=== PATIENT | female | born 1990 | race Caucasian/White ===

== ENCOUNTER → 2018-05-24 | Outpatient (CLI) | payer BC ==
--- NOTE | 2018-05-24 15:55 | Diagnostic Imaging Report ---
INDICATION: survey. TECHNIQUE: Multiple real-time grayscale images were obtained over the gravid uterus. COMPARISON: There are no prior studies available for comparison. FINDINGS: There is a single live fetus in cephalic presentation. heart motion was noted and a rate of 144 BPM was recorded. There were no abnormalities identified. The growth parameters are fairly uniform. The placenta is posterior and there is no previa. The amniotic fluid volume is within normal limits. The cervix was measured and is estimated to be 5.1 cm in length. There does seem to be some heterogeneous echogenicity within the cervix. I am not convinced that this is related to fluid. Even so, this finding is somewhat unusual. It may prove worthwhile to have a short-term (2-4 week) followup exam for further evaluation of the cervix. Biometrical measurements are as follows: Biparietal 4.80 cm, age 20 weeks 4 days. Head circumference 15.58 cm, age 20 weeks 3 days. Abdominal circumference 15.58 cm, age 20 weeks 6 days. Femur length 3.05 cm, age 19 weeks 4 days. Sonographic estimate age: 20 weeks 3 days. Sonographic estimated date of delivery: 10/08/2018. Estimated Weight: 337 gm (+/- 49 gm). LMP percentile: 25%. heart rate: 144 beats per minute. number: 1 of 1. IMPRESSION: 1. There is a single live fetus at approximately 20 weeks 3 days gestation +/-1.5 weeks. The EDC is October 08, 2018. 2. There were no abnormalities identified. 3. The growth parameters are fairly uniform. 4. The appearance of the cervix is of uncertain etiology. Recommendations, as above. Dictated by: Dictated on workstation # [id number]
== END ==
LOC: RAD 14:03
PROVIDERS: ATTEND Obstetrics & Gynecology
DX: Z36.89 Encounter for other specified antenatal screening (principal); Z3A.20 20 weeks gestation of pregnancy
CPT/HCPCS: 76805

== ENCOUNTER → 2018-06-12 | Outpatient (CLI) | payer BC ==
--- NOTE | 2018-06-12 19:14 | Diagnostic Imaging Report ---
INDICATION: Evaluate cervical length. FINDINGS: There is a single live fetus in a cephalic presentation. heart rate was recorded at 150 beats per minute. Placenta is fundal. Cervical length is approximately 2.8 cm. Previously noted heterogeneity is no longer appreciated. IMPRESSION: Unremarkable limited obstetrical ultrasound. Dictated by: Dictated on workstation # [id number]
== END ==
LOC: RAD 11:04
PROVIDERS: ATTEND Obstetrics & Gynecology
DX: Z36.86 Encounter for antenatal screening for cervical length (principal); Z3A.23 23 weeks gestation of pregnancy
CPT/HCPCS: 76815

== ENCOUNTER 2018-09-20 02:03 | Inpatient (IN) | payer BC ==
[2018-09-20] VITALS (78 sets, daily range): BP systolic 101–145; BP diastolic 51–88
[~2018-09-20] VITALS: Ht 160 cm; Wt 66.2 kg
--- NOTE | 2018-09-20 02:10 | NUR ---
KAY WELSH presented to unit via wheelchair from ED, accompanied by , with c/o CONTRACTIONS. KAY WELSH gowned, voided, and to bed. EFHM and TOCO applied, VS taken. KAY WELSH oriented to bed controls, call light, TV, heat, and A/C controls.
[2018-09-20] MEDS ORDERED: PREN-53 PO (02:19)
[2018-09-20] MEDS ORDERED: D5 LR IV SOLUTION 1,000 ML IV ONE (02:19)
[2018-09-20] MEDS ORDERED: OXYTOCIN/NORMAL SALINE 500 ML IV ONE (02:44)
[2018-09-20] MEDS: D5 LR IV SOLUTION 1,000 ML IV SCH ×2 (02:45→09:59)
[2018-09-20] MEDS ORDERED: OXYTOCIN/NORMAL SALINE 500 ML IV SCH ×2 (02:54→17:24)
[2018-09-20 03:00] LABS: BASOPHILS % (AUTO) 0 % (0-10); EOSINOPHILS # (AUTO) 0.4 10^3/uL (0.0-0.3); EOSINOPHILS % (AUTO) 3 % (0-10); HEMATOCRIT 32 % (35-52); HEMOGLOBIN 10.9 G/DL (11.5-16.0); LYMPHOCYTES # (AUTO) 1.8 X 10^3 (1.0-4.0); LYMPHOCYTES % (AUTO) 14 % (12-44); MEAN CORPUSCULAR HEMOGLOBIN 31 PG (25-34); MEAN CORPUSCULAR HGB CONC 34 G/DL (32-36); MEAN CORPUSCULAR VOLUME 92 FL (80-99); MEAN PLATELET VOLUME 9.4 FL (7.4-10.4); MONOCYTES # (AUTO) 1.4 X 10^3 (0.0-1.0); MONOCYTES % (AUTO) 10 % (0-12); NEUTROPHILS # (AUTO) 9.5 X 10^3 (1.8-7.8); NEUTROPHILS % (AUTO) 72 % (42-75); PLATELET COUNT 245 10^3/uL (130-400); RED CELL DISTRIBUTION WIDTH 12.4 % (10.0-14.5); WHITE BLOOD COUNT 13.1 10^3/uL (4.3-11.0)
[2018-09-20] MEDS ORDERED: ONDANSETRON 4 MG/2 ML (SDV) Z0FRAN ONE (05:44)
[2018-09-20] MEDS ORDERED: ONDANSETRON 4 MG/2 ML (SDV) Z0FRAN IVP PRN (06:00)
[2018-09-20] MEDS ORDERED: CATHETER FLUSH 10 ML SYR IV SCH ×2 (06:00→22:00)
--- NOTE | 2018-09-20 07:36 | History & Physical-OB ---
OB - Chief Complaint & HPI Date/Time Date of Admission: Date of Admission: Sep 20, 2018 at 02:43 Date seen by a Provider: Sep 20, 2018 Time Seen by a Provider: 07:35 Chief Complaint/History OB-Reason for Admission/Chief: Rupture of Membranes Hx : 1 Expected Date of Delivery: Sep 08, 2019 Gestational Age in Weeks: 37 Gestational Age in Days: 4 Admission Nurse Assessment Rev: Yes Allergies and Home Medications Allergies Coded Allergies: No Known Drug Allergies (Unverified , 09/20/18) Home Medications [id number]/Iron Fumarate/FA/Dss 1 Each Tablet, 1 EACH PO DAILY, (Reported) Patient Home Medication List Home Medication List Reviewed: Yes OB - History Hx of Present Care: Yes Ultrasounds: Normal mid trimester US Obstetrical Complications: None Medical Complications: None Obstetrical History Hx : 1 Patient Past Medical History n/a OB - Admission Exam Physical Exam Vitals: Vital Signs 09/20/18 09/20/18 06:30 07:00 Temp 98.4 Pulse 86 Resp 18 B/P (MAP) 121/67 (85) O2 Delivery Room Air HEENT: NCAT Heart: Rhythm Normal Lungs: Clear Abdomen: Gravid Extremities: Normal Reflexes: Normal Cervical Dilatation: 1cm Effacement: 75% Station: -1 Membranes: Ruptured Heart Rate: 130's Accelerations: Accelerations Present Decelerations: No Decelerations Short Term Variability: Present Reception Clerk Variability: Average (6-25) Contractions on Admission: >10 Minutes Apart Labs Laboratory Tests Test 09/20/18 02:45 Range/Units White Blood Count 13.1 H 4.3-11.0 10^3/uL Red Blood Count 3.51 L 4.35-5.85 10^6/uL Hemoglobin 10.9 L 11.5-16.0 G/DL Hematocrit 32 L 35-52 % Mean Corpuscular Volume 92 80-99 FL Mean Corpuscular Hemoglobin 31 25-34 PG Mean Corpuscular Hemoglobin Concent 34 32-36 G/DL Red Cell Distribution Width 12.4 10.0-14.5 % Platelet Count 245 130-400 10^3/uL Mean Platelet Volume 9.4 7.4-10.4 FL Neutrophils (%) (Auto) 72 42-75 % Lymphocytes (%) (Auto) 14 12-44 % Monocytes (%) (Auto) 10 0-12 % Eosinophils (%) (Auto) 3 0-10 % Basophils (%) (Auto) 0 0-10 % Neutrophils # (Auto) 9.5 H 1.8-7.8 X 10^3 Lymphocytes # (Auto) 1.8 1.0-4.0 X 10^3 Monocytes # (Auto) 1.4 H 0.0-1.0 X 10^3 Eosinophils # (Auto) 0.4 H 0.0-0.3 10^3/uL Basophils # (Auto) 0.0 0.0-0.1 10^3/uL OB - Assessment/Plan/Diagnosis Assessment Assessment: rupture of membranes Admission Dx 28 yo @ 37 weeks SROM Admission Status: Inpatient Order (span 2 midnights) Reason for Inpatient Admission: Term 37 weeks SROM Plan Other Plan Pitocin per protocol ELIECER VELASCO DO Sep 20, 2018 07:36
[2018-09-20] MEDS ORDERED: SUFENTA 0.6MCG/ML BUPIVA 0.125 100 ML ONE (09:13)
[2018-09-20] MEDS ORDERED: HYDROmorphone 2 MG/ML VIAL (DILAUDID) ONE (09:34)
[2018-09-20] MEDS ORDERED: HYDROmorphone 2 MG/ML VIAL (DILAUDID) IV ONE (09:45)
[2018-09-20] MEDS ORDERED: BUPIVACAINE 0.25% 30 ML (SENSORCAINE) VIAL ONE (11:12)
[2018-09-20] MEDS ORDERED: LIDOCAINE PF 2% 5 ML (XYLOCAINE) VIAL ONE (11:12)
[2018-09-20] MEDS ORDERED: fentaNYL INJECTION 100 MCG/2 ML AMP ONE (11:13)
--- NOTE | 2018-09-20 11:31 | NUR ---
1115 LEMUEL WYATT CRNA here for epidural placement. Procedure explained, consent reviewed and signed by anesthesia. Questions answered to patient's satisfaction. Time out taken to verify correct patient/procedure. 1120 Patient up to side of bed, assisted into sitting position. 1121 Betadine prep done x3 and sterile drape applied.1124 Local done, see anesthesia record. 1128 Test dose given, see anesthesia record for drug and dosage. Epidural catheter secured in place. Epidural placement complete. 1131 Assisted back into bed, monitors adjusted. Epidural dosed, see anesthesia record. 1134 Epidural of Sufenta/Bupvicaine @12cc/hr stated per pump. Patient tolerated procedure well.
[2018-09-20] MEDS ORDERED: EPIDURAL (SUFENTA 0.6MCG/ML BUPIVA 0.125%) 100 ML BAG EPI PRN (11:45)
[2018-09-20] MEDS ORDERED: ONDANSETRON 4 MG/2 ML (SDV) Z0FRAN IV PRN (11:45)
[2018-09-20] MEDS ORDERED: LACTATED RINGERS 1,000 ML IV ONE ×2 (11:45)
[2018-09-20] MEDS ORDERED: NALOXONE 0.4 MG/ML 1 ML (NARCAN) VIAL IV PRN (11:45)
[2018-09-20] MEDS ORDERED: LIDOCAINE/EPI 2% 1:200,00 (XYLOCAINE) 10 ML VIAL ONE (14:10)
[2018-09-20] MEDS ORDERED: BENZOCAINE/MENTHOL (DERMOPLAST) 56 ML CAN TP ONE (17:12)
[2018-09-20] MEDS ORDERED: WITCH HAZEL(TUCKS) 40 EA JAR ONE (17:12)
[2018-09-20] MEDS ORDERED: MEASLES,MUMPS,RUBELLA 1 EA INJ SQ ONE (17:30)
[2018-09-20] MEDS ORDERED: DIBUCAINE (NUPERCAINAL) 1% OINT 30 GM TOP PRN (17:30)
[2018-09-20] MEDS ORDERED: TETANUS,DIPTH,PERTUSS P/F (BOOSTRIX) 0.5 ML VIAL IM ONE (17:30)
[2018-09-20] MEDS ORDERED: BENZOCAINE/MENTHOL (DERMOPLAST) 56 ML CAN TP PRN (17:30)
[2018-09-20] MEDS ORDERED: HYDROcodone/APAP 5 MG/325 MG (LORTAB) TAB PO PRN (17:30)
[2018-09-20] MEDS ORDERED: WITCH HAZEL(TUCKS) 40 EA JAR TOP PRN (17:30)
--- NOTE | 2018-09-20 17:32 | OB Labor & Delivery Record ---
L&D History Date of Service Date of Service: Sep 20, 2018 History Expected Date of Delivery: Sep 08, 2019 Gestational Age in Weeks: 37 Hx : 1 Complications Events: Routine care Operative Indications (Cesarea: N/A-Vaginal Delivery Intrapartal Events: None L&D Stage1 Stage One Onset of Labor - Date: Sep 20, 2018 Monitors and Tracing Monitor Mode: External Heart Rate: 135 Monitor Accelerations: Uniform Monitor Decelerations: None Station: -4 Production Supv Variability: Average (6-10) Short Term Variability: Present Presentation: Vertex Vital Signs VS - Last 72 Hours, by Label 09/20/18 09/20/18 09/20/18 09/20/18 03:00 03:15 03:30 03:45 Temp 98.9 Pulse 95 95 91 100 Resp 18 18 18 18 B/P (MAP) 122/72 (89) 116/88 (97) 128/73 (91) 120/69 (86) O2 Delivery Room Air Room Air Room Air Room Air 09/20/18 09/20/18 09/20/18 09/20/18 04:00 04:15 04:30 04:45 Pulse 91 97 88 89 Resp 18 18 18 18 B/P (MAP) 126/70 (88) 120/76 (91) 115/71 (86) 121/74 (90) O2 Delivery Room Air Room Air Room Air Room Air 09/20/18 09/20/18 09/20/18 09/20/18 05:00 05:15 05:30 05:45 Pulse 93 93 86 93 Resp 18 18 18 18 B/P (MAP) 111/75 (87) 112/79 (90) 109/70 (83) 117/76 (90) O2 Delivery Room Air Room Air Room Air Room Air 09/20/18 09/20/18 09/20/18 09/20/18 06:00 06:15 06:30 06:45 Temp 98.4 Pulse 88 104 88 90 Resp 18 18 18 18 B/P (MAP) 109/71 (84) 121/74 (90) 122/66 (84) 123/67 (85) O2 Delivery Room Air Room Air Room Air Room Air 09/20/18 07:00 Pulse 86 Resp 18 B/P (MAP) 121/67 (85) O2 Delivery Room Air Rupture of Membranes Spontaneous Ruture of Membrane: Yes Amniotic Membrane Rupture Time: 0100 Amniotic Membrane Fluid Desc.: Clear Vaginal Bleeding Description: Normal Show Induction/Anesthesia Epidural Cath Placement - Time: 1127 Progress/Notes Pitocin augmentation started at admission for no contractions and ROM. L&D Stage2 Stage Two Stage II Date: Sep 20, 2018 Monitors and Tracing Monitor Mode: External Heart Rate: 165 Monitor Accelerations: Uniform Monitor Decelerations: Variable Correction Variability: Minimal (3-5) Short Term Variability: Present Position: Right Occiput Anterior Presentation: Vertex Cord Descript/Complications Cord Vessel Description: 3 Vessels Complications nuchal cord reduced x 2 Delivery Type Delivery Method: Spontaneous Vaginal Anterior Shoulder: Right Episiotomy/Perineal Laceration Laceraction(s)/Extensions: Yes Episiotomy Description: Midline Location Modifier: Right Degree (describe repair) midline episiotomy repaired using 3-0 and 2-0 vicryl suture Condition of Delivery 1 minute Comment: 7 5 minute Comment: 9 Notes Live male infant weight 6lbs 3 oz Condition of Condition of : Living Exam: No Observed Abnormalities Resuscitation Resuscitation: N/A - Spontaneous Resp L&D Stage3 Stage Three Stage III Date: Sep 20, 2018 Pictocin Pitocin Administration mu/min: 10 Pitocin ml/hr: 10 Pitocin Administration Comment: 30 mu wide open at delivery of placenta Placenta Delivery Placenta Delivery: Spontaneous Delivery Summary Summary Estimated blood loss (mL): 400 Attending at delivery: Eliecer Velasco DO Condition of Delivery Examined: Cervix Examined, Uterus Explored Post Hemorrhage: No Condition of Mother stable Condition of Infant (s) stable ELIECER VELASCO DO Sep 20, 2018 17:32
[2018-09-20] MEDS: IBUPROFEN 600 MG (MOTRIN) TAB PO SCH (18:43)
[2018-09-20] MEDS ORDERED: LIDOCAINE/EPI 2% 1:200,00 (XYLOCAINE) 10 ML VIAL INJ ONE (18:45)
[2018-09-21 00:09] VITALS: BP 87/47
[2018-09-21] MEDS: DOCUSATE SODIUM 100 MG (COLACE) CAP PO SCH ×3 (00:10→23:49)
[2018-09-21] MEDS: IBUPROFEN 600 MG (MOTRIN) TAB PO SCH ×5 (00:10→23:49)
[2018-09-21 05:36] LABS: BASOPHILS % (AUTO) 0 % (0-10); EOSINOPHILS # (AUTO) 0.3 10^3/uL (0.0-0.3); EOSINOPHILS % (AUTO) 2 % (0-10); HEMATOCRIT 26 % (35-52); HEMOGLOBIN 8.7 G/DL (11.5-16.0); LYMPHOCYTES # (AUTO) 2.1 X 10^3 (1.0-4.0); LYMPHOCYTES % (AUTO) 12 % (12-44); MEAN CORPUSCULAR HEMOGLOBIN 31 PG (25-34); MEAN CORPUSCULAR HGB CONC 33 G/DL (32-36); MEAN CORPUSCULAR VOLUME 94 FL (80-99); MEAN PLATELET VOLUME 9.5 FL (7.4-10.4); MONOCYTES # (AUTO) 1.8 X 10^3 (0.0-1.0); MONOCYTES % (AUTO) 11 % (0-12); NEUTROPHILS # (AUTO) 12.5 X 10^3 (1.8-7.8); NEUTROPHILS % (AUTO) 75 % (42-75); PLATELET COUNT 199 10^3/uL (130-400); RED CELL DISTRIBUTION WIDTH 12.5 % (10.0-14.5); WHITE BLOOD COUNT 16.8 10^3/uL (4.3-11.0)
--- NOTE | 2018-09-21 07:16 | Postpartum Progress Note ---
Note Note Day # 1 Subjective: Patient is without complaints. Ambulating, voiding. Tolerating a regular diet without nausea or vomiting. Normal lochia. Pain is well controlled with oral pain medications. Objective: Physical Exam: General - Alert and oriented, no apparent distress Abdomen - Soft, appropriately tender to palpation, non-distended, fundus firm at umbilicus Extremities - no edema, negative Alexandre's bilaterally Assessment: PPD 1 NVD Acute blood loss anemia Plan: Routine care. Encourage breast feeding. Encourage ambulation. Ferrous sulfate supplementation. Plan for discharge tomorrow Vitals - Labs Vital Signs - I&O Vital Signs Date Time Temp Pulse Resp B/P (MAP) Pulse Ox O2 Delivery O2 Flow Rate FiO2 09/21/18 00:09 97.8 94 18 87/47 (60) 98 Room Air 09/20/18 19:00 98.9 108 18 109/59 (76) Room Air 09/20/18 18:30 114 18 101/55 (70) Room Air 09/20/18 18:00 98.6 99 18 104/59 (74) Room Air 09/20/18 17:45 103 18 108/57 (74) Room Air 09/20/18 17:30 107 18 108/56 (73) Room Air 09/20/18 17:15 113 18 105/55 (72) Room Air 09/20/18 17:00 114 18 103/59 (74) Room Air 09/20/18 16:45 118 18 101/55 (70) Room Air 09/20/18 16:30 116 18 112/58 (76) Room Air 09/20/18 16:15 128 18 103/51 (68) Room Air 09/20/18 16:00 98.9 124 20 117/61 (79) Room Air 09/20/18 15:45 128 20 145/77 (99) Room Air 09/20/18 15:30 110 20 126/75 (92) Non Rebreather 15.00 09/20/18 15:15 118 20 125/70 (88) Non Rebreather 15.00 09/20/18 15:00 120 18 117/69 (85) Non Rebreather 15.00 09/20/18 14:45 120 18 120/65 (83) Non Rebreather 15.00 09/20/18 14:30 120 18 118/68 (85) Non Rebreather 15.00 09/20/18 14:15 113 18 119/62 (81) Non Rebreather 15.00 09/20/18 14:00 98.6 123 18 118/61 (80) Non Rebreather 15.00 09/20/18 13:50 Non Rebreather 15.00 09/20/18 13:45 112 18 118/66 (83) Room Air 09/20/18 13:30 117 18 117/71 (86) Room Air 09/20/18 13:15 108 18 106/62 (77) 99 Room Air 09/20/18 13:00 109 18 113/68 (83) 99 Room Air 09/20/18 12:45 113 18 118/67 (84) 99 Room Air 09/20/18 12:30 107 18 117/67 (84) 100 Room Air 09/20/18 12:28 116 18 127/71 (89) 100 Room Air 09/20/18 12:24 117 18 120/71 (87) 98 Room Air 09/20/18 12:19 107 18 118/63 (81) 100 Room Air 09/20/18 12:12 118 18 115/61 (79) 100 Room Air 09/20/18 12:07 106 18 112/60 (77) 100 Room Air 09/20/18 12:02 108 18 124/66 (85) 100 Room Air 09/20/18 11:59 98.1 109 18 120/63 (82) 100 Room Air 09/20/18 11:56 113 18 121/64 (83) 100 Room Air 09/20/18 11:53 111 18 121/65 (83) 100 Room Air 09/20/18 11:50 113 18 129/66 (87) 99 Room Air 09/20/18 11:47 111 18 126/67 (86) 100 Room Air 09/20/18 11:44 127 18 115/64 (81) 100 Room Air 09/20/18 11:41 126 18 118/66 (83) 100 Room Air 09/20/18 11:38 116 18 116/64 (81) 99 Room Air 09/20/18 11:35 114 18 118/65 (82) 99 Room Air 09/20/18 11:32 118 18 118/63 (81) 99 Room Air 09/20/18 11:29 115 18 120/64 (82) 99 Room Air 09/20/18 11:28 104 18 120/68 (85) 98 Room Air 09/20/18 11:25 106 18 132/63 (86) 100 Room Air 09/20/18 11:10 103 18 124/63 (83) Room Air 09/20/18 10:55 97 18 128/66 (86) Room Air 09/20/18 10:40 113 18 113/65 (81) Room Air 09/20/18 10:25 105 18 115/65 (82) Room Air 09/20/18 10:10 99.0 104 18 114/67 (83) Room Air 09/20/18 09:55 108 18 114/57 (76) Room Air 09/20/18 09:40 102 18 124/67 (86) Room Air 09/20/18 09:25 108 18 115/63 (80) Room Air 09/20/18 09:10 105 18 116/64 (81) Room Air 09/20/18 08:55 93 18 117/60 (79) Room Air 09/20/18 08:40 99 18 107/70 (82) Room Air 09/20/18 08:25 87 18 105/68 (80) Room Air 09/20/18 08:10 94 18 112/72 (85) Room Air 09/20/18 07:55 86 18 111/73 (86) 98 Room Air 09/20/18 07:40 97.9 97 18 120/64 (82) Room Air 09/20/18 07:25 74 18 106/65 (79) Room Air I & O 09/21/18 07:00 Intake Total 4000 ml Output Total 1500 ml Balance 2500 ml Labs Laboratory Tests 09/21/18 05:15: White Blood Count 16.8H, Red Blood Count 2.81L, Hemoglobin 8.7#L, Hematocrit 26L , Mean Corpuscular Volume 94, Mean Corpuscular Hemoglobin 31, Mean Corpuscular Hemoglobin Concent 33, Red Cell Distribution Width 12.5, Platelet Count 199, Mean Platelet Volume 9.5, Neutrophils (%) (Auto) 75, Lymphocytes (%) (Auto) 12, Monocytes (%) (Auto) 11, Eosinophils (%) (Auto) 2, Basophils (%) (Auto) 0, Neutrophils # (Auto) 12.5H, Lymphocytes # (Auto) 2.1, Monocytes # (Auto) 1.8H, Eosinophils # (Auto) 0.3, Basophils # (Auto) 0.0 ELIECER VELASCO DO Sep 21, 2018 07:16
--- NOTE | 2018-09-21 07:26 | Discharge Inst-Women's Service ---
Discharge Inst-Women's Serv Depart Medication/Instructions New, Converted or Re-Newed RX: RX on Chart Final Diagnosis PPD 2 NVD Consults/Follow Up Additional Follow Up: Yes Orders/Referrals Dr. Bess in 6 weeks Activity Activity: Activity as Tolerated Driving Instructions: No Driving for 1 Week NO SMOKING: NO SMOKING Nothing Inside Vagina: No Douching, No [place], No Tampons Diet Discharge Diet: No Restrictions Symptoms to Report to : Bleeding Excessive, Pain Increased, Fever Over 101 Degrees F, Vaginal Bleeding Increase, Questions/Concerns For Any Problems or Questions: Contact Your Physician ELIECER VELASCO DO Sep 21, 2018 07:26
[2018-09-21] MEDS ORDERED: IBUP-844 PO (07:28)
[2018-09-21] MEDS ORDERED: DOCU100C37 PO (07:28)
[2018-09-21] MEDS ORDERED: ACHD5005 PO (07:28)
[2018-09-21] MEDS ORDERED: Benzocaine/Menthol TP (07:28)
[2018-09-21 08:00] VITALS: BP 112/65
[2018-09-21] MEDS: FERROUS SULF 325 MG (IRON) TAB PO SCH (08:12)
[2018-09-21] MEDS: PRENATAL VITAMIN 1 EA TAB PO SCH (08:12)
--- NOTE | 2018-09-21 10:11 | Anesthesia-Regional Post-Op ---
Regional Patient Condition Mental Status: Alert, Oriented x3 Circulation: Same as Pre-Op Headache: Absent Sensation: Full Recovery Motor Block: Absent Post Op Complications Complications None Follow Up Care/Instructions Patient Instructions None needed. Anesthesia/Patient Condition Patient is doing well, no complaints, stable vital signs, no apparent adverse anesthesia problems. No complications reported per nursing. JOELLE AYALA CRNA Sep 21, 2018 10:11
[2018-09-21 14:43] VITALS: BP 105/67
--- NOTE | 2018-09-21 16:00 | NUR ---
No change in pt assessment. Up and about in room. Good bonding with infant.
--- NOTE | 2018-09-21 17:30 | NUR ---
Report from Justo Sosa RN
[2018-09-21 18:10] VITALS: BP 118/76
[2018-09-21 23:50] VITALS: BP 113/72
[2018-09-22] MEDS: IBUPROFEN 600 MG (MOTRIN) TAB PO SCH (06:02)
[2018-09-22 06:03] VITALS: BP 109/68
--- NOTE | 2018-09-22 08:34 | Postpartum Progress Note ---
Note Note Day # 2 Subjective: Patient is without complaints. Ambulating, voiding. Tolerating a regular diet without nausea or vomiting. Normal lochia. Pain is well controlled with oral pain medications. Objective: Physical Exam: General - Alert and oriented, no apparent distress Abdomen - Soft, appropriately tender to palpation, non-distended, fundus firm at umbilicus Extremities - no edema, negative Alexandre's bilaterally Assessment: PPD 2 NVD Acute blood loss anemia Plan: Routine care. Encourage breast feeding. Encourage ambulation. Ferrous sulfate supplementation. Plan for discharge today Vitals - Labs Vital Signs - I&O Vital Signs Date Time Temp Pulse Resp B/P (MAP) Pulse Ox O2 Delivery O2 Flow Rate FiO2 09/22/18 06:03 98.5 81 18 109/68 (82) 98 09/21/18 23:50 98.0 97 18 113/72 (86) 98 09/21/18 18:10 98.7 102 18 118/76 (90) 100 Room Air 09/21/18 14:43 97.9 105 18 105/67 (80) 100 Room Air ELIECER VELASCO DO Sep 22, 2018 08:34
--- NOTE | 2018-09-22 09:00 | NUR ---
Dr Ibarra here to see pt. D/C orders rec'd.
[2018-09-22 09:45] VITALS: BP 118/72
[2018-09-22] MEDS: DOCUSATE SODIUM 100 MG (COLACE) CAP PO SCH (09:45)
[2018-09-22] MEDS: FERROUS SULF 325 MG (IRON) TAB PO SCH (09:45)
[2018-09-22] MEDS: PRENATAL VITAMIN 1 EA TAB PO SCH (09:45)
--- NOTE | 2018-09-22 11:40 | NUR ---
Discharge instructions explained to pt with copy provided to pt along with prescriptions. Pt notified of follow up. Pt offered motrin, desires to take own at home. Pt verbalizes understanding of instructions, signs to verify. Pt denies needs or concerns at this time. Encouraged to call when ready for dismissal.
--- NOTE | 2018-09-22 12:45 | NUR ---
Pt ambulates off unit to private vehicle accompanied by RN, S.O., parents, with all personal belongings. No s/s of distress noted.
== END 2018-09-22 12:45 | disposition home or self-care (01) | DRG 806 ==
LOC: WSo 02:03 → LDRP 02:04 → WSo 02:43 → LDRP 02:43
PROVIDERS: ADMIT Obstetrics & Gynecology; ATTEND Obstetrics & Gynecology
PROC: 10E0XZZ Delivery of Products of Conception, External Approach (ICD-10-PCS; principal; 2018-09-20)
PROC: 0W8NXZZ Division of Female Perineum, External Approach (ICD-10-PCS; 2018-09-20)
DX: O69.81X0 Labor and delivery complicated by cord around neck, without compression, not applicable or unspecified (principal); O90.81 Anemia of the puerperium; D62 Acute posthemorrhagic anemia; Z37.0 Single live birth; Z3A.37 37 weeks gestation of pregnancy
CPT/HCPCS: 36415; 85025; 86850; 86900; 86901; 99212

== ENCOUNTER → 2022-07-08 | Outpatient (CLI) | payer OTHER ==
[~2022-07-08] MED LIST: ACHD5005 PO; Benzocaine/Menthol TP; DOCU100C37 PO; IBUP-844 PO; PREN-53 PO
--- NOTE | 2022-07-08 16:06 | Diagnostic Imaging Report ---
INDICATION: , screening, anatomic survey, 21 weeks 2 days. TECHNIQUE: Multiple Real-time grayscale images were obtained over the gravid uterus. COMPARISON: None. FINDINGS: The cervix is measured at 4.8 cm with no funneling seen. There is a single live intrauterine gestation in cephalic presentation. The placenta is anterior without evidence of previa. The heart rate measures 161 BPM. The amniotic fluid index measures 12.3 cm. The stomach and bladder are seen. A three-vessel cord is demonstrated with two umbilical arteries. The kidneys are seen. A four-chamber heart is seen. The upper and lower spine are seen. The cerebellum is seen. The cisterna magna measures 7 mm which is normal. The lateral ventricle is seen. The cord insertion is seen. The right and left ventricular outflow tracts are seen. The diaphragm is seen. Biometrical measurements are as follows: Biparietal 4.60 cm, age 20 weeks 0 days. Head circumference 18.49 cm, age 20 weeks 6 days. Abdominal circumference 14.99 cm, age 20 weeks 2 days. Femur length 3.30 cm, age 20 weeks 3 days. Sonographic estimate age: 20 weeks 3 days. Sonographic estimated date of delivery: 11/22/2022. Estimated Weight: 346 gm (+/- 51 gm). LMP percentile: 8%. heart rate: 161 beats per minute. number: 1 of 1. IMPRESSION: 1. Single live intrauterine gestation measuring at 20 weeks and 3 days which is within range of the clinical dates. 2. No abnormality is seen on the anatomic survey. Dictated by: Dictated on workstation # [id number]
== END ==
LOC: RAD 12:00
PROVIDERS: ATTEND Obstetrics & Gynecology
DX: Z36.9 Encounter for antenatal screening, unspecified (principal); Z3A.20 20 weeks gestation of pregnancy
CPT/HCPCS: 76805

== ENCOUNTER 2022-11-09 06:00 | Inpatient (IN) | payer OTHER ==
[2022-11-09] VITALS (23 sets, daily range): BP systolic 100–124; BP diastolic 56–76
[~2022-11-09] VITALS: Ht 160 cm; Wt 65.7 kg
[2022-11-09] MEDS ORDERED: LIDOCAINE 2% w/EPI 1:200,000 20 ML VIAL INJ PRN (07:00)
[2022-11-09] MEDS ORDERED: LACTATED RINGERS 500 ML IV PRN (07:00)
[2022-11-09] MEDS ORDERED: D5 LR 1,000 ML IV SOLN 1,000 ML IV SCH (07:00)
[2022-11-09] MEDS ORDERED: OXYTOCIN PRE-MIX DRIP 500 ML IV SCH (07:45)
[2022-11-09 07:53] LABS: BASOPHILS % (AUTO) 0 % (0-10); EOSINOPHILS # (AUTO) 0.2 10^3/uL (0.0-0.3); EOSINOPHILS % (AUTO) 2 % (0-10); HEMATOCRIT 30 % (35-52); HEMOGLOBIN 10.1 g/dL (11.5-16.0); LYMPHOCYTES # (AUTO) 1.4 10^3/uL (1.0-4.0); LYMPHOCYTES % (AUTO) 14 % (12-44); MEAN CORPUSCULAR HEMOGLOBIN 32 pg (25-34); MEAN CORPUSCULAR HGB CONC 34 g/dL (32-36); MEAN CORPUSCULAR VOLUME 94 fL (80-99); MEAN PLATELET VOLUME 9.7 fL (9.0-12.2); MONOCYTES # (AUTO) 0.9 10^3/uL (0.0-1.0); MONOCYTES % (AUTO) 9 % (0-12); NEUTROPHILS # (AUTO) 7.2 10^3/uL (1.8-7.8); NEUTROPHILS % (AUTO) 73 % (42-75); PLATELET COUNT 190 10^3/uL (130-400); WHITE BLOOD COUNT 9.9 10^3/uL (4.3-11.0)
--- NOTE | 2022-11-09 07:56 | History & Physical-OB ---
OB - Chief Complaint & HPI Date/Time Date of Admission: Date of Admission: Nov 09, 2022 at 06:36 Date seen by a Provider: Nov 09, 2022 Time Seen by a Provider: 07:40 Chief Complaint/History OB-Reason for Admission/Chief: Induction of Labor Hx : 2 Hx Para: 1 Expected Date of Delivery: Nov 16, 2022 Gestational Age in Weeks: 39 Other reason for admission: [id number] Admission Nurse Assessment Rev: Yes Allergies and Home Medications Allergies Coded Allergies: No Known Drug Allergies (Unverified , 09/20/18) Patient Home Medication List Home Medication List Reviewed: Yes [id number]/Iron Fumarate/FA/Dss ( 19 Tablet) 1 Each Tablet, 1 EACH PO DAILY, (Reported) Entered as Reported by: MICHEL HUNG on 09/20/18218 Last Action: Reviewed Discontinued Medications Docusate Sodium (Docusate Sodium) 100 Mg Capsule, 100 MG PO BID PRN for CONSTIPATION-1ST LINE Discontinued Reason: No Longer Taking Prescribed by: ELIECER VELASCO on 09/21/18727 Last Action: Discontinued Hydrocodone Bit/Acetaminophen (Lortab 5 Mg Tablet) 1 Tab Tab, 1 TAB PO Q4H PRN for PAIN-MODERATE Discontinued Reason: No Longer Taking Prescribed by: ELIECER VELASCO on 09/21/18727 Last Action: Discontinued Ibuprofen (Ibu) 600 Mg Tablet, 600 MG PO Q6HR Discontinued Reason: No Longer Taking Prescribed by: ELIECER VELASCO on 09/21/18727 Last Action: Discontinued [Benzocaine/Menthol] 56 ML AEROSOL, 0 ML TP UD PRN for PAIN- SEE INSTRUCTIONS Discontinued Reason: No Longer Taking Prescribed by: ELIECER VELASCO on 09/21/18727 Last Action: Discontinued OB - History Hx of Present Care: Yes Ultrasounds: Normal mid trimester US Obstetrical Complications: Gestational Diabetes (diet controlled) Medical Complications: None Patient Past Medical History n/a Immunizations Influenza Vaccine Up-to-Date: No; Not Current OB - Admission Exam Physical Exam Vitals: Vital Signs 11/09/22 07:15 Temp 37.0 Pulse 113 Resp 18 Pulse Ox 97 O2 Delivery Room Air HEENT: NCAT Heart: Rhythm Normal Lungs: Clear Abdomen: Gravid Extremities: Normal Reflexes: Normal Cervical Dilatation: 3cm Effacement: 50% Station: -2 Membranes: Intact Heart Rate: 130's Accelerations: Accelerations Present Decelerations: No Decelerations Short Term Variability: Present Fdc Variability: Average (6-25) Contractions on Admission: 6-10 Minutes Apart Intensity: Mild Mccarthy Scoring Tool (Modified) Dilation (cm): 3-4cm (2) Effacement (%): 51-79% (2) Descent/Station: -2 (1) Cervix Consistency: Soft (2) Cervix Position: Middle/Mid-Position (1) Mccarthy Score: 10 Labs Laboratory Tests Test 11/09/22 07:00 11/09/22 07:25 Range/Units OB - Assessment/Plan/Diagnosis Assessment Assessment: induction of labor Admission Dx 32 yo @ 39 weeks [id number] GBS neg Admission Status: Inpatient Order (span 2 midnights) Reason for Inpatient Admission: IOL at 39 weeks Plan Plan: Induction Induction Method: ELIECER BULLARD DO Nov 09, 2022 07:55
[2022-11-09 08:03] LABS: BILIRUBIN,URINE NEGATIVE (NEGATIVE); CLARITY,URINE CLEAR; COLOR,URINE YELLOW; GLUCOSE, URINE (UA) NEGATIVE (NEGATIVE); KETONES,URINE NEGATIVE (NEGATIVE); LEUKOCYTE ESTERASE ,URINE 1+ (NEGATIVE); NITRITE,URINE NEGATIVE (NEGATIVE); PH,URINE 6.5 (5-9); PROTEIN,URINE NEGATIVE (NEGATIVE); RBC,URINE RARE /HPF
[2022-11-09 08:04] LABS: BACTERIA,URINE MODERATE /HPF; WBC,URINE 25-50 /HPF
[2022-11-09] MEDS ORDERED: fentaNYL 2 mcg/ml BUPIVA 0.125 100 ML ONE (09:31)
[2022-11-09] MEDS ORDERED: fentaNYL INJECTION 100 MCG/2 ML VIAL ONE (10:23)
[2022-11-09] MEDS ORDERED: BUPIVACAINE 0.25% 10 ML VIAL ONE (10:23)
[2022-11-09] MEDS ORDERED: ONDANSETRON 4 MG/2 ML (SDV) Z0FRAN IV PRN (10:30)
[2022-11-09] MEDS ORDERED: fentaNYL INJECTION 100 MCG/2 ML VIAL INJ ONE (10:30)
[2022-11-09] MEDS ORDERED: LACTATED RINGERS 1,000 ML IV ONE ×2 (10:30)
[2022-11-09] MEDS ORDERED: NALOXONE 0.4 MG/ML 1 ML VIAL IV PRN ×2 (10:30→11:15)
[2022-11-09] MEDS ORDERED: fentaNYL 2 mcg/ml BUPIVA 0.125 100 ML EPI SCH (10:30)
[2022-11-09] MEDS ORDERED: FAMOTIDINE INJ 20MG/2ML VIAL ONE (10:42)
[2022-11-09] MEDS ORDERED: ceFAZolin INJECTION 2,000 MG ONE (10:42)
[2022-11-09] MEDS ORDERED: CITRIC ACID/SODIUM CITRATE ORAL SOLN 30 ML ONE (10:42)
[2022-11-09] MEDS ORDERED: METOCLOPRAMIDE INJ 10 MG/2 ML ONE (10:42)
[2022-11-09] MEDS ORDERED: NS (IVPB) 50 ML 50 ML ONE (10:42)
--- NOTE | 2022-11-09 11:09 | Progress Note ---
Standard Progress Note Progress Notes/Assess & Plan Date Seen by a Provider: Nov 09, 2022 Time Seen by a Provider: 10:45 Progress/Assessment & Plan Called to LDR for cervix exam by RN after unsure of what she was feeling. Bedside US revealed change in position from AROM this AM which was vertex. Fetus now in the right transverse presentation with a foot noted to be prolapsed through the cervix which is dialated to 5 cm. Urgent c/s recommended, or crew called. ELIECER VELASCO DO Nov 09, 2022 11:09
[2022-11-09] MEDS ORDERED: Tetanus/Diphtheria/Pertussis (Acell) ADULT Vaccine 0.5 ML IM SCH (11:15)
[2022-11-09] MEDS ORDERED: ONDANSETRON 4 MG/2 ML (SDV) Z0FRAN IVP PRN (11:15)
[2022-11-09] MEDS ORDERED: MEASLES, MUMPS, RUBELLA VACCINE (MMR) SC SCH (11:15)
[2022-11-09] MEDS ORDERED: HYDROcodone/ACETAMINOPHEN 5 MG/325 MG TABLET PO PRN (11:15)
[2022-11-09] MEDS ORDERED: OXYTOCIN PRE-MIX DRIP 500 ML IV ONE ×2 (11:39→11:49)
[2022-11-09] MEDS ORDERED: BUPIVACAINE 0.5% 30 ML VIAL ONE (11:39)
[2022-11-09] MEDS ORDERED: KETOROLAC INJ 30 MG/ML VIAL ONE (11:39)
[2022-11-09] MEDS ORDERED: ONDANSETRON 4 MG/2 ML (SDV) Z0FRAN ONE (11:39)
[2022-11-09] MEDS: OXYTOCIN PRE-MIX DRIP 500 ML IV SCH ×2 (13:13→17:26)
[2022-11-09] MEDS ORDERED: CATHETER FLUSH 10 ML SYR IV SCH ×2 (14:00)
--- NOTE | 2022-11-09 15:34 | OPERATIVE REPORT ---
PREOPERATIVE DIAGNOSES: 1. A 32-year-old G2, P1 at 39 weeks' gestation. 2. Unstable lie. 3. Foot prolapse. POSTOPERATIVE DIAGNOSES: 1. A 32-year-old G2, P1 at 39 weeks' gestation. 2. Unstable lie. 3. Foot prolapse. PROCEDURE: Primary low transverse section. SURGEON: Conrado Velasco DO ANESTHESIA: Spinal. ESTIMATED BLOOD LOSS: 400 mL URINE OUTPUT: 700 mL clear at the end of procedure. FLUIDS: 1500 mL lactated Ringer's solution. FINDINGS: A live female , weighing 6 pounds 9 ounces, Apgars of 1 and 9. Grossly normal appearing bilateral fallopian tubes, ovaries and uterus. SPECIMEN SENT: Placenta. INDICATIONS FOR PROCEDURE: This 32-year-old female patient was brought in for induction of labor at 39 weeks due to gestational diabetes that was diet controlled. Artificial rupture of membranes and scalp electrode was performed this morning, and there was vertex presentation that was confirmed; however 2-3 hours later, she was reexamined. The nurse is unsure of what she was feeling. Upon my evaluation, was found to be a foot prolapse and the infant was now in the right transverse presentation. Due to unstable lie and prolapse, discussed with the patient proceeding with urgent . Risks were reviewed. After all of her questions were answered, consent was obtained, the patient was taken to the operating room. OPERATIVE REPORT IN DETAIL: Once in the operating room, anesthesia was administered and found to be adequate, was placed in supine position with leftward tilt, prepped and draped in sterile fashion. A timeout was performed. Anesthesia was tested. Anesthesia was tested. I then made a Pfannenstiel skin incision with a knife and carried down to fascia using Bovie cautery. Superior aspect of fascial incision was then grasped with Remington clamps, tented up and dissected off the underlying rectus muscles. The inferior aspect of fascial incision was then grasped with Remington clamps, tented up and dissected off the underlying rectus muscles. Rectus muscles were dissected down the midline using blunt dissection, which exposed the peritoneum, which entered bluntly using blunt traction. The patient was placed in the peritoneal incision, which offers excellent lateral sidewall retraction. I identified the lower uterine segment, found to be thinned out and make a low transverse incision to the vesicouterine peritoneum and bluntly dissected off the lower uterine segment, creating a bladder flap. I then proceeded with my myotomy until membranes were visualized, at which point the uterine incision laterally and superiorly using bandage scissors. Amniotomy was performed through the incision at that point. Clear fluid was still noted. was found in the right transverse presentation. There is fluid that is elevated up into the incision. The other foot to be higher up in the abdomen. It has to be grasped with my hand and brought down to the incision. Once both feet are brought through the incision, I delivered the 's up to the buttocks and then the upper torso and rotate the infant was facing downward. I then delivered the arms by sweeping them across the chest and then elevate the 's body into the area where I delivered the head by flexion through the incision. Once the head is down, I bulb suctioned the nares and oropharynx. The cord was duly clamped and cut and infant was handed off to waiting nurses in attendance. Cord blood was collected. Three-vessel cord intact placenta was delivered spontaneously thereafter. IV Pitocin was initiated to facilitate uterine contraction. Uterine fundus confirmed by manual massage. The uterus was exteriorized and cleared of all endometrial clots and debris. I then proceeded with closing the uterine incision using 0 Vicryl suture in a running locked fashion. Second imbricating 0 Monocryl was placed. Excellent hemostasis was noted after doing this. I then placed the uterus back in pelvis and copiously irrigated the pelvis using normal saline. Once again, there was no active bleeding noted from any of my dissection planes. I placed Interceed antiadhesive over my low transverse incision. I removed the Devendra ring retractor and then proceeded to close the peritoneum using 3-0 Vicryl suture in a running fashion. Rectus muscles were reapproximated using 3-0 Vicryl suture in interrupted fashion. Fascia was reapproximated using 0 Vicryl suture in a running fashion. The skin reapproximated with 4-0 Monocryl running subcuticular. Dermabond was applied to incision, sterile dressing with adhesive white tape. The patient tolerated the procedure well and sent to recovery area in stable condition. Lap and sponge counts were correct at the end of the procedure. Instrument counts correct as well. Two grams of Ancef were given preoperatively for infection prophylaxis. Job ID: [id number] DocumentID: [id number] Dictated Date: 11/09/2022 11:48:39 Stamping Press Operator Date: 11/09/2022 15:33:00 Dictated By: CONRADO VELASCO DO
[2022-11-09] MEDS: KETOROLAC INJ 30 MG/ML VIAL IV SCH ×2 (17:26→22:52)
[2022-11-09] MEDS: DOCUSATE SODIUM 100 MG CAPSULE PO SCH (21:13)
[2022-11-10 02:45] VITALS: BP 103/58
[2022-11-10] MEDS: KETOROLAC INJ 30 MG/ML VIAL IV SCH (05:24)
[2022-11-10 05:54] LABS: BASOPHILS % (AUTO) 0 % (0-10); EOSINOPHILS # (AUTO) 0.2 10^3/uL (0.0-0.3); EOSINOPHILS % (AUTO) 1 % (0-10); HEMATOCRIT 27 % (35-52); LYMPHOCYTES # (AUTO) 1.4 10^3/uL (1.0-4.0); LYMPHOCYTES % (AUTO) 10 % (12-44); MEAN CORPUSCULAR HEMOGLOBIN 31 pg (25-34); MEAN CORPUSCULAR HGB CONC 33 g/dL (32-36); MEAN CORPUSCULAR VOLUME 95 fL (80-99); MEAN PLATELET VOLUME 9.7 fL (9.0-12.2); MONOCYTES # (AUTO) 1.1 10^3/uL (0.0-1.0); MONOCYTES % (AUTO) 8 % (0-12); NEUTROPHILS # (AUTO) 11.4 10^3/uL (1.8-7.8); NEUTROPHILS % (AUTO) 80 % (42-75); PLATELET COUNT 175 10^3/uL (130-400); WHITE BLOOD COUNT 14.3 10^3/uL (4.3-11.0)
[2022-11-10 06:13] LABS: BAND NEUTROPHILS 4 %; LYMPHOCYTES % (MANUAL) 11 %; MONOCYTES % (MANUAL) 5 %; NEUTROPHILS % (MANUAL) 79 %
[2022-11-10 06:22] LABS: EOSINOPHILS % (MANUAL) 1 %
--- NOTE | 2022-11-10 08:15 | Postpartum Progress Note ---
Note Note Day # 1 Subjective: Patient is without complaints. Ambulating, voiding. Tolerating a regular diet without nausea or vomiting. Normal lochia. Pain is well controlled with oral pain medications. Objective: Physical Exam: General - Alert and oriented, no apparent distress Abdomen - Soft, appropriately tender to palpation, non-distended, fundus firm at umbilicus Extremities - no edema, negative Alexandre's bilaterally Incision- c/d/i Assessment: POD1 PLTCS Acute blood loss anemia Plan: Routine care. Encourage breast feeding. Encourage ambulation. Ferrous sulfate supplementation. Plan for discharge tomorrow Vitals - Labs Vital Signs - I&O Vital Signs Date Time Temp Pulse Resp B/P (MAP) Pulse Ox O2 Delivery O2 Flow Rate FiO2 11/10/22 02:45 36.7 87 18 103/58 (73) 98 Room Air 11/09/22 21:13 36.4 85 18 101/64 (76) 97 Room Air 11/09/22 16:00 36.4 96 18 103/66 (78) 96 Room Air 11/09/22 14:49 Room Air 11/09/22 13:30 36.3 85 16 101/66 (78) 98 Room Air 11/09/22 12:55 Room Air 11/09/22 12:55 36.2 16 104/71 (82) 97 Room Air 11/09/22 12:40 Room Air 11/09/22 12:40 36.4 18 110/67 (81) 97 Room Air 11/09/22 12:25 Room Air 11/09/22 12:25 36.3 18 100/65 (77) 97 Room Air 11/09/22 12:10 Room Air 11/09/22 12:10 36.2 18 100/60 (73) 97 Room Air 11/09/22 11:55 Room Air 11/09/22 11:55 36.5 16 103/56 (72) 97 Room Air 11/09/22 10:56 111 111/72 (85) 11/09/22 10:42 115 124/76 (92) 11/09/22 10:26 105 114/71 (85) 11/09/22 10:11 101 105/63 (77) 11/09/22 09:56 96 107/64 (78) 11/09/22 09:41 98 112/65 (81) 11/09/22 09:26 36.8 101 18 113/67 (82) 11/09/22 09:11 106 112/67 (82) 11/09/22 08:56 105 112/71 (85) 11/09/22 08:41 96 111/65 (80) 11/09/22 08:26 100 105/60 (75) I & O 11/10/22 07:00 Intake Total 3450 ml Output Total 3450 ml Balance 0 ml Labs Laboratory Tests 11/10/22 05:30: White Blood Count 14.3H, Red Blood Count 2.87L, Hemoglobin 9.0L, Hematocrit 27L, Mean Corpuscular Volume 95, Mean Corpuscular Hemoglobin 31, Mean Corpuscular Hemoglobin Concent 33, Red Cell Distribution Width 12.9, Platelet Count 175, Me an Platelet Volume 9.7, Immature Granulocyte % (Auto) 1, Neutrophils (%) (Auto) 80H, Lymphocytes (%) (Auto) 10L, Monocytes (%) (Auto) 8, Eosinophils (%) (Auto) 1, Basophils (%) (Auto) 0, Neutrophils # (Auto) 11.4H, Lymphocytes # (Auto) 1.4, Monocytes # (Auto) 1.1H, Eosinophils # (Auto) 0.2, Basophils # (Auto) 0.0, Immature Granulocyte # (Auto) 0.1, Neutrophils % (Manual) 79, Lymphocytes % (Manual) 11, Monocytes % (Manual) 5, Eosinophils % (Manual) 1, Band Neutrophils 4 ELIECER VELASCO DO Nov 10, 2022 08:15
--- NOTE | 2022-11-10 08:16 | Discharge Inst-Women's Service ---
Discharge Inst-Women's Serv Depart Medication/Instructions New, Converted or Re-Newed RX: Transmitted to Pharmacy Final Diagnosis POD 2 PLTCS Problems Reviewed?: Yes Consults/Follow Up Additional Follow Up: Yes Orders/Referrals Dr. Ibarra in 7-10 days and in 6 weeks Activity Activity: Activity as Tolerated Driving Instructions: No Driving for 1 Week NO SMOKING: NO SMOKING Nothing Inside Vagina: No Douching, No [place], No Tampons Diet Discharge Diet: No Restrictions Symptoms to Report to : Bleeding Excessive, Pain Increased, Fever Over 101 Degrees F, Vaginal Bleeding Increase, Questions/Concerns For Any Problems or Questions: Contact Your Physician Skin/Wound Care Infection Signs and Symptoms: Increased Redness, Foul Odor of Wound, Increased Drainage, Skin Itchy or Has a Rash, Increased Swelling, Temperature Above 101 F Operative Area Clean and Dry: Keep Incision Clean/Dry Stitches/[place]/Dermabond: Dermabond, Care of Stitches Bathing Instructions: ELIECER Walters DO Nov 10, 2022 08:16
[2022-11-10] MEDS ORDERED: ACHD5005 PO (08:17)
[2022-11-10] MEDS ORDERED: IBUP-844 PO (08:17)
[2022-11-10] MEDS ORDERED: FERR325T24 PO (08:17)
[2022-11-10] MEDS ORDERED: DOCU100C37 PO (08:17)
[2022-11-10 08:30] VITALS: BP 103/59
[2022-11-10] MEDS: DOCUSATE SODIUM 100 MG CAPSULE PO SCH ×2 (08:44→21:01)
[2022-11-10] MEDS: IBUPROFEN 600 MG TABLET PO SCH ×2 (11:37→19:16)
[2022-11-10] MEDS: FERROUS SULFATE 325 MG (IRON) TABLET PO SCH ×2 (11:47→19:16)
[2022-11-10 13:15] VITALS: BP 111/57
--- NOTE | 2022-11-10 13:53 | Anesthesia-Regional Post-Op ---
Regional Patient Condition Mental Status: Alert, Oriented x3 Circulation: Same as Pre-Op Headache: Absent Sensation: Full Recovery Motor Block: Absent Post Op Complications Complications None Follow Up Care/Instructions Patient Instructions None needed. Anesthesia/Patient Condition Patient is doing well, no complaints, stable vital signs, no apparent adverse anesthesia problems. No complications reported per nursing. MARCEL IBRAHIM CRNA Nov 10, 2022 13:53
[2022-11-10 18:00] VITALS: BP 108/60
[2022-11-10] MEDS ORDERED: SIMETHICONE 80 MG (MYLICON) CHEW PO ONE (22:30)
[2022-11-11 00:40] VITALS: BP 97/60
[2022-11-11] MEDS: IBUPROFEN 600 MG TABLET PO SCH ×2 (00:42→06:27)
[2022-11-11 06:25] VITALS: BP 115/65
--- NOTE | 2022-11-11 08:11 | Postpartum Progress Note ---
Note Note Day # 2 Subjective: Patient is without complaints. Ambulating, voiding. Tolerating a regular diet without nausea or vomiting. Normal lochia. Pain is well controlled with oral pain medications. Objective: Physical Exam: General - Alert and oriented, no apparent distress Abdomen - Soft, appropriately tender to palpation, non-distended, fundus firm at umbilicus Extremities - no edema, negative Alexandre's bilaterally Incision- c/d/i Assessment: POD 2 PLTCS Acute blood loss anemia Plan: Routine care. Encourage breast feeding. Encourage ambulation. Ferrous sulfate supplementation. Plan for discharge today Vitals - Labs Vital Signs - I&O Vital Signs Date Time Temp Pulse Resp B/P (MAP) Pulse Ox O2 Delivery O2 Flow Rate FiO2 11/11/22 06:25 36.6 86 18 115/65 (82) 99 Room Air 11/11/22 00:40 36.5 88 20 97/60 (72) 98 Room Air 11/10/22 18:00 36.7 81 18 108/60 (76) 98 Room Air 11/10/22 13:15 36.7 91 18 111/57 (75) 98 Room Air 11/10/22 08:30 36.7 86 18 103/59 (74) 96 Room Air Labs Microbiology 11/09/22 Urine Culture - Final, Complete Gram Pos Mixed Bacterial Gaye See Comments ELIECER VELASCO DO Nov 11, 2022 08:11
[2022-11-11 08:12] VITALS: BP 100/64
[2022-11-11] MEDS: FERROUS SULFATE 325 MG (IRON) TABLET PO SCH (08:12)
[2022-11-11] MEDS: DOCUSATE SODIUM 100 MG CAPSULE PO SCH (08:12)
[2022-11-11 12:30] VITALS: BP 100/64
== END 2022-11-11 12:30 | disposition home or self-care (01) | DRG 787 ==
LOC: LDRP 06:36
PROVIDERS: ADMIT Obstetrics & Gynecology; ATTEND Obstetrics & Gynecology
PROC: 10D00Z1 Extraction of Products of Conception, Low, Open Approach (ICD-10-PCS; principal; 2022-11-09 11:05)
DX: O24.420 Gestational diabetes mellitus in childbirth, diet controlled (principal); D62 Acute posthemorrhagic anemia; Z3A.39 39 weeks gestation of pregnancy; Z37.0 Single live birth; O90.81 Anemia of the puerperium; O32.1XX0 Maternal care for breech presentation, not applicable or unspecified; O32.0XX0 Maternal care for unstable lie, not applicable or unspecified
CPT/HCPCS: 36415; 81000; 82947; 85007; 85025; 85027; 86780; 86850; 86900; 86901; 87088; 94664